=== PATIENT | male | born 1995 | race Caucasian/White ===

== ENCOUNTER 2018-08-05 22:23 | Emergency (ER) | payer OTHER ==
[~2018-08-05] VITALS: Ht 170.2 cm; Wt 91.6 kg
[2018-08-05 23:00] VITALS: Ht 170.2 cm; Wt 91.6 kg
[2018-08-06 00:43] LABS: BASOPHIL % 0.8 % (0-2); PLATELET COUNT 254 x10^3mcL (130-400); RED CELL DISTRIBUTION WIDTH 12.8 % (11.5-14.5)
[2018-08-06 00:55] LABS: CALCIUM 8.7 mg/dL (8.5-10.1); CARBON DIOXIDE 33.6 mmol/L (21-32); CHLORIDE SERUM 104 mmol/L (98-107); CREATININE SERUM 1.1 mg/dL (0.7-1.3); GFR1 > 60 mL/min; GLUCOSE SERUM 87 mg/dL (74-106); POTASSIUM SERUM 3.6 mmol/L (3.5-5.1); SODIUM SERUM 142 mmol/L (136-145)
[2018-08-06 00:59] LABS: ALKALINE PHOSPHATASE 76 U/L (46-116); ALT/SGPT 39 U/L (16-63); AMYLASE 77 U/L (25-115); AST/SGOT 22 U/L (15-37); BILIRUBIN TOTAL 0.5 mg/dL (0.20-1.00); LIPASE 119 IU/L (73-393)
[2018-08-06 02:34] VITALS: BP 109/56
== END 2018-08-06 02:34 | disposition home or self-care (01) ==
LOC: ED 22:23
PROVIDERS: Emergency Medicine
DX: K29.70 Gastritis, unspecified, without bleeding (principal); Z88.8 Allergy status to other drugs, medicaments and biological substances
CPT/HCPCS: C9113; J2405; J7030

== ENCOUNTER 2018-12-28 20:04 | Emergency (ER) | payer OTHER ==
[~2018-12-28] VITALS: Ht 170.2 cm; Wt 93.4 kg
[2018-12-28 20:14] VITALS: Ht 170.2 cm; Wt 93.4 kg
[2018-12-28 21:05] LABS: BASOPHIL % 0.2 % (0-2); PLATELET COUNT 253 x10^3mcL (130-400); RED CELL DISTRIBUTION WIDTH 12.2 % (11.5-14.5)
[2018-12-28 21:17] LABS: CALCIUM 8.7 mg/dL (8.5-10.1); CARBON DIOXIDE 30.7 mmol/L (21-32); CHLORIDE SERUM 104 mmol/L (98-107); CREATININE SERUM 1.3 mg/dL (0.7-1.3); GFR1 > 60 mL/min; GLUCOSE SERUM 113 mg/dL (74-106); POTASSIUM SERUM 3.6 mmol/L (3.5-5.1); SODIUM SERUM 139 mmol/L (136-145)
[2018-12-28 21:23] LABS: ALBUMIN 3.7 g/dL (3.4-5.0); ALKALINE PHOSPHATASE 68 U/L (46-116); ALT/SGPT 33 U/L (16-63); AMYLASE 95 U/L (25-115); AST/SGOT 20 U/L (15-37); BILIRUBIN TOTAL 0.23 mg/dL (0.20-1.00); LIPASE 107 IU/L (73-393); TOTAL PROTEIN, SERUM 7.3 g/dL (6.4-8.2)
[2018-12-29 00:31] VITALS: BP 108/56
== END 2018-12-29 00:31 | disposition home or self-care (01) ==
LOC: ED 20:04
PROVIDERS: Emergency Medicine
DX: R10.12 Left upper quadrant pain (principal); R10.32 Left lower quadrant pain; R10.31 Right lower quadrant pain; Z88.8 Allergy status to other drugs, medicaments and biological substances
CPT/HCPCS: C9113; J2405; Q0092

== ENCOUNTER 2020-02-06 17:52 | Emergency (ER) | payer OTHER ==
[~2020-02-06] VITALS: Ht 170.2 cm; Wt 92.5 kg
[2020-02-06 17:58] VITALS: Ht 170.2 cm; Wt 92.5 kg
[2020-02-06 20:30] LABS: microscopic required? YES; urine erythrocyte 2+ (NEGATIVE)
[2020-02-06 21:16] VITALS: BP 115/70
== END 2020-02-06 21:16 | disposition home or self-care (01) ==
LOC: ED 17:52
PROVIDERS: Emergency Medicine
DX: N45.1 Epididymitis (principal); F17.290 Nicotine dependence, other tobacco product, uncomplicated
CPT/HCPCS: 87491; 87591; 99406

== ENCOUNTER 2020-02-07 07:14 | Emergency (ER) | payer OTHER ==
[~2020-02-07] VITALS: Ht 170.2 cm; Wt 92.5 kg
[2020-02-07 07:25] VITALS: Ht 170.2 cm; Wt 92.5 kg
[2020-02-07 10:31] VITALS: BP 110/65
== END 2020-02-07 10:31 | disposition home or self-care (01) ==
LOC: ED 07:14
DX: N45.1 Epididymitis (principal)
CPT/HCPCS: J1885